=== PATIENT | female | born 2000 | race Caucasian/White ===

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

== ENCOUNTER 2023-01-28 18:49 | Emergency (ER) | payer BC ==
[2023-01-28] MEDS ORDERED: Metoclopramide 10 MG/2 ML SDV IVPUSH ONE (19:29)
[2023-01-28] MEDS ORDERED: diphenhydrAMINE 50 MG/ML SDV IVPUSH ONE (19:29)
[2023-01-28] MEDS ORDERED: Acetaminophen 325 MG Tab PO ONE (19:29)
[2023-01-28] MEDS ORDERED: Lactated Ringers 1,000 ML IV SCH (19:30)
[2023-01-28 20:49] LABS: BASOPHILS PERCENT AUTO 0.2 % (0.0-1.5); EOSINOPHILS ABSOLUTE AUTO 0.1 K/uL (0.0-0.7); EOSINOPHILS PERCENT AUTO 0.6 % (0.0-7.0); HEMATOCRIT 35.9 % (36.0-46.0); HEMOGLOBIN 12.6 g/dL (12.0-16.0); LYMPHOCYTES ABSOLUTE AUTO 1.3 K/uL (0.6-2.4); LYMPHOCYTES PERCENT AUTO 12.8 % (16.0-40.0); MEAN CORPUSCULAR HEMOGLOBIN 29.1 pg (27.0-32.0); MEAN CORPUSCULAR HGB CONC 35.1 g/dL (31.0-37.0); MEAN CORPUSCULAR VOLUME 82.9 fL (80.0-98.0); MONOCYTES ABSOLUTE AUTO 0.8 K/uL (0.0-0.8); MONOCYTES PERCENT AUTO 8.2 % (0.0-15.0); NEUTROPHILS ABSOLUTE AUTO 7.7 K/uL (1.4-5.7); NEUTROPHILS PERCENT AUTO 78.2 % (48.0-80.0); NRBC ABSOLUTE 0 K/uL; PLATELET COUNT,PLT 279 K/uL (150-400); RED BLOOD CELL COUNT 4.33 M/uL (4.30-5.90); WHITE BLOOD CELL COUNT,WBC 9.82 K/uL (4.0-11.0)
[2023-01-28 20:55] LABS: BILIRUBIN,URINE NEGATIVE (NEGATIVE); COLOR,URINE YELLOW; GLUCOSE,URINE NEGATIVE (NEGATIVE); KETONES,URINE 15 mg/dL (NEGATIVE); LEUKOCYTE ESTERASE,URINE SMALL (NEGATIVE); NITRITE,URINE NEGATIVE (NEGATIVE); OCCULT BLOOD,URINE NEGATIVE (NEGATIVE); PROTEIN,URINE NEGATIVE (NEGATIVE); UROBILINOGEN,URINE 0.2 EU/dL (<2.0)
[2023-01-28 20:57] LABS: INR 0.98 (0.86-1.11)
[2023-01-28 21:08] LABS: APPEARANCE,URINE SLT CLOUDY; BACTERIA,URINE 2+ (NEGATIVE); EPITHELIAL CELLS,URINE FEW (NONE-FEW); RBC,URINE 0-2 (0-2/HPF)
[2023-01-28 21:10] LABS: A/G RATIO 0.8 (0.9-1.6); ALBUMIN 3.3 g/dL (3.4-5.0); BILIRUBIN TOTAL 0.5 mg/dL (0.2-1.0); CALCIUM 8.8 mg/dL (8.5-10.1); CARBON DIOXIDE,CO2 21.2 mmol/L (21.0-32.0); CREATININE 0.5 mg/dL (0.6-1.0); EST CRCL DRUG DOSING (CG) 168.02 mL/min; MAGNESIUM 1.7 mg/dL (1.8-2.4); POTASSIUM,K 3.5 mmol/L (3.5-5.1); PROTEIN TOTAL,TP 7.4 g/dL (6.4-8.2)
[2023-01-28] MEDS ORDERED: Cephalexin 500 MG Cap PO ONE (21:22)
== END 2023-01-28 21:36 | disposition home or self-care (01) ==
LOC: MW.ED 18:49
DX: O23.42 Unspecified infection of urinary tract in pregnancy, second trimester (principal); N39.0 Urinary tract infection, site not specified; Z88.0 Allergy status to penicillin; Z3A.22 22 weeks gestation of pregnancy
CPT/HCPCS: 36415; 80053; 81001; 83690; 83735; 85025; 85610; 87086; 96361; 96374; 96375; 99284; A9270; J1200; J2765; J7120

== ENCOUNTER 2023-05-21 04:55 | Inpatient (IN) | payer BC ==
[2023-05-21] MEDS ORDERED: Ondansetron 4 MG/2 ML SDV IVPUSH PRN (05:16)
[2023-05-21] MEDS ORDERED: Sodium Chloride 0.9% 20 ML SDV IV PRN (05:16)
[2023-05-21] MEDS ORDERED: Sodium Chloride 0.9% 10 ML Syringe FLUSH PRN (05:16)
[2023-05-21] MEDS ORDERED: Methylergonovine 0.2 MG/1 ML Amp IM PRN (05:16)
[2023-05-21] MEDS ORDERED: Terbutaline 1 MG/ML SDV SUBCUT PRN (05:16)
[2023-05-21] MEDS ORDERED: Carboprost Tromethamine 250 MCG/1 mL Vial IM PRN (05:16)
[2023-05-21] MEDS ORDERED: Butorphanol 1 MG/ML SDV IVPUSH PRN (05:16)
[2023-05-21] MEDS ORDERED: Tranexamic Acid IN NACL,ISO-OS 1,000 MG in Premix Bag 1 BAG IV PRN ×2 (05:16)
[2023-05-21] MEDS ORDERED: Misoprostol 200 MCG Tab PO PRN (05:16)
[2023-05-21] MEDS ORDERED: Water For Irrigation,Sterile 1,000 ML Container IRR PRN (05:16)
[2023-05-21] MEDS ORDERED: Lidocaine 1% 50 ML MDV INJECT PRN (05:16)
[2023-05-21] MEDS ORDERED: Sodium Chloride 0.9% 2.5 ML Syringe FLUSH PRN (05:16)
[2023-05-21] MEDS ORDERED: Clindamycin Phosphate in D5W 900 MG in Premix Bag 1 BAG IV SCH ×2 (05:30)
[2023-05-21] MEDS ORDERED: Oxytocin/0.9 % Sodium Chloride 30 UNIT/500 ML BAG IV SCH ×2 (05:30)
[2023-05-21] MEDS: Lactated Ringers 1,000 ML IV SCH ×3 (05:33→17:11)
[2023-05-21 05:56] LABS: HEMATOCRIT 31.8 % (36.0-46.0); HEMOGLOBIN 11.2 g/dL (12.0-16.0); MEAN CORPUSCULAR HGB CONC 35.2 g/dL (31.0-37.0); MEAN CORPUSCULAR VOLUME 79.5 fL (80.0-98.0); PLATELET COUNT,PLT 263 K/uL (150-400); WHITE BLOOD CELL COUNT,WBC 7.53 K/uL (4.0-11.0)
[2023-05-21] MEDS: Clindamycin Phosphate in D5W 300 MG in Premix Bag 1 BAG IV SCH ×4 (06:25→18:00)
[2023-05-21] MEDS ORDERED: Phenylephrine HCl 0.5 MG/5 ML AMP IVPUSH PRN (06:40)
[2023-05-21] MEDS ORDERED: ePHEDrine 50 MG/ML SDV IVPUSH PRN ×2 (06:40)
[2023-05-21] MEDS ORDERED: Ropivacaine HCl/PF 400 MG in Premix Bag 1 BAG EPIDUR SCH (06:45)
[2023-05-21] MEDS: Clindamycin Phosphate in D5W 600 MG in Premix Bag 1 BAG IV SCH ×4 (06:45→17:31)
[2023-05-21] MEDS ORDERED: FLU (Flulaval Quad) 2023-24(6MOS UP)/PF 60 MCG/0.5 ML Syringe IM ONE (09:00)
[2023-05-21] MEDS ORDERED: Dexmedetomidine 200 MCG/2 ML SDV ONE (13:23)
[2023-05-22] MEDS ORDERED: Witch Hazel Medicated Pads 40/Jar TOP PRN (01:39)
[2023-05-22] MEDS ORDERED: Lanolin 100% Cream 7 GM Tube TOP PRN (01:39)
[2023-05-22] MEDS ORDERED: Bisacodyl 10 MG Supp RECTAL PRN (01:39)
[2023-05-22] MEDS ORDERED: Ibuprofen 400 MG Tab PO PRN (01:39)
[2023-05-22] MEDS ORDERED: Benzocaine/Menthol 20%-0.5% Spray 78 GM Cannister TOP PRN (01:39)
[2023-05-22] MEDS ORDERED: Acetaminophen 500 MG Tab PO PRN (01:39)
[2023-05-22] MEDS ORDERED: Ibuprofen 800 MG Tab PO PRN (01:39)
[2023-05-22] MEDS ORDERED: Docusate Sodium 100 MG Cap PO PRN (01:39)
[2023-05-22] MEDS ORDERED: Clindamycin Phosphate in D5W 600 MG in Premix Bag 1 BAG IV SCH ×2 (02:00)
[2023-05-22] MEDS ORDERED: Clindamycin Phosphate in D5W 300 MG in Premix Bag 1 BAG IV SCH ×2 (02:30)
[2023-05-22 05:43] LABS: HEMATOCRIT 32.6 % (37.0-47.0); HEMOGLOBIN 11.4 g/dL (12.0-16.0)
[2023-05-22] MEDS: Acetaminophen 500 MG Tab PO PRN ×2 (12:02→22:23)
[2023-05-23] MEDS ORDERED: Prenatal Multivitamin with Calcium/Folic Acid/Iron Tab PO SCH (12:30)
== END 2023-05-23 12:45 | disposition home or self-care (01) | DRG 560 ==
LOC: MW.OBCHECK 04:55 → MW.OB 04:56 → MW.OBCHECK 05:16 → MW.OB 05:16 → OBSVTOIN 21:48 → MW.OB 05-22 01:36
PROVIDERS: ADMIT Obstetrics & Gynecology; ATTEND Obstetrics & Gynecology
PROC: 10E0XZZ Delivery of Products of Conception, External Approach (ICD-10-PCS; principal; 2023-05-21)
PROC: 3E0P7VZ Introduction of Hormone into Female Reproductive, Via Natural or Artificial Opening (ICD-10-PCS; 2023-05-21)
PROC: 3E033VJ Introduction of Other Hormone into Peripheral Vein, Percutaneous Approach (ICD-10-PCS; 2023-05-21)
PROC: 3E0R3BZ Introduction of Anesthetic Agent into Spinal Canal, Percutaneous Approach (ICD-10-PCS; 2023-05-21)
PROC: 00HU33Z Insertion of Infusion Device into Spinal Canal, Percutaneous Approach (ICD-10-PCS; 2023-05-21)
DX: O99.824 Streptococcus B carrier state complicating childbirth (principal); O69.81X0 Labor and delivery complicated by cord around neck, without compression, not applicable or unspecified; Z37.0 Single live birth; O99.52 Diseases of the respiratory system complicating childbirth; J45.909 Unspecified asthma, uncomplicated; Z90.89 Acquired absence of other organs; Z88.1 Allergy status to other antibiotic agents; Z3A.39 39 weeks gestation of pregnancy
CPT/HCPCS: 01967; 36415; 51702; 59025; 59409; 82947; 85014; 85018; 85027; 86592; 86850; 86900; 86901; A9270-GY; J2590; J3490; J7120

== ENCOUNTER 2023-08-17 20:25 | Emergency (ER) | payer BC ==
[2023-08-17 21:22] LABS: CORONAVIRUS COVID-19 NAA NEGATIVE (NEGATIVE); INFLUENZA A NAA NEGATIVE (NEGATIVE); INFLUENZA B NAA POSITIVE (NEGATIVE); RESPIRATORY SYNCYTIAL VIR NAA NEGATIVE (NEGATIVE)
[2023-08-17] MEDS ORDERED: Ketorolac 30 MG/ML SDV IM ONE (21:34)
[2023-08-17] MEDS ORDERED: Acetaminophen 500 MG Tab PO ONE (21:34)
[2023-08-17] MEDS ORDERED: methylPREDNISolone Sodium Succinate 125 MG/2 ML SDV IM ONE (21:40)
== END 2023-08-17 21:59 | disposition home or self-care (01) ==
LOC: MW.ED 20:25
DX: J10.1 Influenza due to other identified influenza virus with other respiratory manifestations (principal); J45.909 Unspecified asthma, uncomplicated; Z88.0 Allergy status to penicillin
CPT/HCPCS: 0241U; 93005; 96372; 99285; A9270; J1885; J2930; 93010; 99283

== ENCOUNTER 2025-04-10 13:11 | Emergency (ER) | payer BC | END 2025-04-10 16:05 | disposition home or self-care (01) | LOC: MW.ED 13:11 | DX: S93.402A Sprain of unspecified ligament of left ankle, initial encounter (principal); J45.909 Unspecified asthma, uncomplicated; Z88.0 Allergy status to penicillin; Z79.899 Other long term (current) drug therapy; X50.9XXA Other and unspecified overexertion or strenuous movements or postures, initial encounter | CPT/HCPCS: 73610; 99283; A9270 ==